=== PATIENT | male | born 1995 | race Caucasian/White ===

== ENCOUNTER 2017-02-17 14:06 | Emergency (ER) | payer OTHER ==
[~2017-02-17] VITALS: Ht 175.3 cm; Wt 65.9 kg
[2017-02-17] MEDS ORDERED: LEVA1TAB2 PO ×2 (15:51→16:03)
[2017-02-17] MEDS ORDERED: DOXY100C37 PO ×2 (15:51→16:03)
[2017-02-17 16:05] VITALS: BP 118/64
== END 2017-02-17 16:06 | disposition home or self-care (01) ==
LOC: M ED 14:06
DX: S61.452A Open bite of left hand, initial encounter (principal); W54.0XXA Bitten by dog, initial encounter; Y92.019 Unspecified place in single-family (private) house as the place of occurrence of the external cause; Y93.89 Activity, other specified; Y99.8 Other external cause status; Z88.0 Allergy status to penicillin